=== PATIENT | female | born 1995 | race Two or more races ===

== ENCOUNTER 2017-03-23 10:31 | Day surgery (SDC) | payer OTHER ==
[2017-03-22 11:04] VITALS: BMI 19.5
[2017-03-23 12:14] VITALS: TEMP 97.9
[2017-03-23 13:13] VITALS: BP 105/63; PULSE 79
--- NOTE | 2017-03-26 13:11 | PATH ---
Surgical Pathology Report Patient Name: RISSA MURILLO [facility]. Rec. #: [id number] /Age/Gender: 1995 (Age: 21) / F Account: [id number] Location: U-ENDOSCOPY Taken: 03/23/2017 Received: 03/23/2017 Reported: 03/26/2017 Physicians: Migel Hung M.D. Specimen(s) Received A: BX DUODENUM B: BX GASTRIC BODY C: BX DISTAL ESOPHAGUS Clinical History Weight loss, abdominal pain, chronic constipation, rectal bleeding Gastritis, esophagitis, hiatal hernia, redundant colon, tortuous sigmoid, hemorrhoids Final Diagnosis A. DUODENUM, BIOPSY: DUODENAL MUCOSA WITH CHRONIC INFLAMMATION AND ELENO'S GLANDS HYPERPLASIA. NO HISTOLOGIC EVIDENCE OF GLUTEN SENSITIVE ENTEROPATHY (CELIAC DISEASE). B. STOMACH, BODY, BIOPSY: GASTRIC OXYNTIC MUCOSA WITH MILD TO MODERATE CHRONIC GASTRITIS. IMMUNOSTAIN FOR H. PYLORI IS NEGATIVE FOR ORGANISMS. C. ESOPHAGUS, DISTAL, BIOPSY: SQUAMOUS EPITHELIUM WITH MARKED CHRONIC INFLAMMATION AND REFLUX TYPE CHANGES. NO COLUMNAR TUMOR PRESENT (NO INTESTINAL METAPLASIA/MARTIN'S ESOPHAGUS IDENTIFIED). NO EVIDENCE OF EOSINOPHILIC ESOPHAGITIS. Electronically Signed Nikko Holguin M.D. Gross Description A. Received in formalin, labeled "biopsy duodenum" are 5 carvajal, irregular portions of soft tissue ranging from 0.1-0.8 cm in greatest dimension. The specimens are submitted in toto in one cassette. B. Received in formalin, labeled "biopsy gastric body" is a carvajal, irregular portion of soft tissue measuring 0.3 cm in greatest dimension. The specimen is submitted in toto in one cassette. C. Received in formalin, labeled "biopsy distal esophagus" is a carvajal, irregular portion of soft tissue measuring 0.5 cm in greatest dimension. The specimen is submitted in toto in one cassette. DL/03/23/2017 saudi03/23/2017
== END 2017-03-23 13:12 | disposition home or self-care (01) ==
LOC: JASU-ENDO 10:31
PROVIDERS: ATTEND Internal Medicine Gastroenterology
PROC: 0DB68ZX Excision of Stomach, Via Natural or Artificial Opening Endoscopic, Diagnostic (ICD-10-PCS; 2017-03-23)
PROC: 0DB38ZX Excision of Lower Esophagus, Via Natural or Artificial Opening Endoscopic, Diagnostic (ICD-10-PCS; 2017-03-23)
PROC: 0DJD8ZZ Inspection of Lower Intestinal Tract, Via Natural or Artificial Opening Endoscopic (ICD-10-PCS; 2017-03-23)
PROC: 0DB98ZX Excision of Duodenum, Via Natural or Artificial Opening Endoscopic, Diagnostic (ICD-10-PCS; principal; 2017-03-23 11:00)
DX: D50.9 Iron deficiency anemia, unspecified (principal); R63.4 Abnormal weight loss; K31.89 Other diseases of stomach and duodenum; K29.50 Unspecified chronic gastritis without bleeding; K20.9 Esophagitis, unspecified; K44.9 Diaphragmatic hernia without obstruction or gangrene; K64.8 Other hemorrhoids; Q43.8 Other specified congenital malformations of intestine
CPT/HCPCS: 84703; 88305-TC; 88342-TC

== ENCOUNTER 2020-11-23 16:12 | Emergency (ER) | payer OTHER ==
[2020-11-23 16:20] VITALS: BP 99/61; PULSE 84; TEMP 98.8; BMI 27.4
== END 2020-11-23 20:00 | disposition home or self-care (01) ==
LOC: JER 16:12
DX: R20.2 Paresthesia of skin (principal); R07.9 Chest pain, unspecified
CPT/HCPCS: 70450-TC; 71046-TC-FY; 93005; 93010; 99285-25